=== PATIENT | female | born 1950 | race Caucasian/White ===

== ENCOUNTER → 2017-06-23 | Day surgery (SDC) | payer OTHER ==
[~2017-06-23] MED LIST: BUPIVACAINE/EPINEPHRINE 0.25% 50 ML VIAL ONE; KETOROLAC TROMETHAMINE 30 MG/ML (IVP) VIAL IV PUSH ONE; MIDAZOLAM HCL 2 MG/2 ML VIAL ONE; ONDANSETRON HCL 4 MG/2 ML VIAL IV PUSH ONE; PROPOFOL 100 MG/10 ML INJ IV ONE
--- NOTE | 2017-06-24 22:39 | MP ---
cc: STANISLAW ALCOCER M.D. DATE OF SURGERY 06/23/2017 PREOPERATIVE DIAGNOSES 1. Postmenopausal bleeding. 2. Stenotic cervix with inability to sample endometrium in the office. POSTOPERATIVE DIAGNOSES 1. Postmenopausal bleeding. 2. Stenotic cervix with inability to sample endometrium in the office. 3. Postoperative day number zero. INDICATIONS Anant Hyde is a 66-year-old 2, para 1-0-1-1 who has a history of a few isolated episodes of postmenopausal spotting over the past 3 years. She has been seen and evaluated by her primary care physician who was unable to obtain endometrial sampling in the office due to cervical stenosis. The patient was referred to me. I was also unable to dilate in the office. Ultrasound in the office showed a thin endometrial stripe approximately 5 mm with a small posterior submucous fibroid 1.5 x 0.5 cm. It was discussed with the patient the need for tissue sampling and as such she was scheduled for procedure in the operating room. PROCEDURE PERFORMED 1. Exam under anesthesia. 2. Cervical dilation and endometrial curettage. SURGEON Stanislaw Alcocer MD PROCUREMENT REPRESENTATIVE Aayush Kwok MS-3. ANESTHESIA General using LMA. ESTIMATED BLOOD LOSS 5 ml. IV FLUID REPLACEMENT 800 ml. URINE OUTPUT 50 ml of clear urine drained by in-and-out catheter at the beginning the procedure. SPECIMEN Endometrial curetting. COMPLICATIONS Stenotic cervix dilated up only to accommodate the smallest curette. Did not feel it was necessary to dilate to accommodate the hysteroscope as it was very difficult to dilate initially and lacrimal duct dilators were necessary. PROPHYLAXIS SCDs were on and functioning throughout the entire case. COUNTS Sponge, lap, instrument and needle are correct x2 at the conclusion of the procedure. INTRAOPERATIVE FINDINGS Include an atrophic vagina and vulva consistent with postmenopausal status. The cervix was smooth 2 cm width flush with the vaginal mucosa. Cervical os was stenotic. Uterus was approximately 5 cm. No adnexal masses were appreciated on bimanual examination. PROCEDURE IN DETAIL After reviewing the informed consent, the patient was taken to the operating suite where a time-out was performed to identify the patient, planned procedure and any known allergies to drugs or drug products. The patient was then placed in dorsal supine position. General anesthesia using LMA was administered without difficulty and found to be adequate. The patient was then gently elevated into high lithotomy position using candy cane stirrups. Exam under anesthesia was performed with results as listed above. The perineum was then prepped and draped in normal sterile fashion. Sterile red rubber catheter was used to drain the bladder. Sterile speculum was placed vaginally. A single-tooth tenaculum was used to grasp the cervix on the anterior lip. Paracervical block was performed using 10 ml of 0.25% Marcaine with epinephrine. The cervix was found be very stenotic. It os was unable to be dilated with a standard cervical dilator set. Lacrimal duct probes were used and eventually the cervical os was able to be cannulated. Progression of cervical dilators were used up to accommodate the smallest size sharp curette. Sharp curette was introduced. Scant tissue was found. Sharp curette and tenaculum were removed as was speculum vaginally. Sponge stick was used for hemostasis. The patient was brought back into dorsal supine position. She was awoken from anesthesia. The procedure concluded at this point. DISPOSITION The patient discharged to home today with office followup. She is aware of postoperative precautions. MD SAFIA Velarde/RENETTA /1:23 PM /10:26 PM JOHN
== END | disposition home or self-care (01) ==
LOC: ESDC 10:33
PROVIDERS: ATTEND Obstetrics & Gynecology
DX: N95.0 Postmenopausal bleeding (principal); N88.2 Stricture and stenosis of cervix uteri
CPT/HCPCS: 00952; 58558; 88305; J1885; J2250; J2405; J3010